=== PATIENT | female | born 1985 | race Caucasian/White ===

== ENCOUNTER 2023-07-11 08:11 | Outpatient (CLI) | payer BC, SELFPAY | END 2023-07-11 08:12 | disposition home or self-care (01) | PROVIDERS: Visit Provider Physician Assistant Medical | DX: N39.0 Urinary tract infection, site not specified (principal); B37.2 Candidiasis of skin and nail; N30.00 Acute cystitis without hematuria | CPT/HCPCS: 87086 ==